=== PATIENT | female | born 2000 | race Caucasian/White ===

== ENCOUNTER 2022-02-02 21:41 | Emergency (ER) | payer BC, SELFPAY ==
[2022-02-02 21:42] VITALS: BP 138/83; PULSE 90; RESP 16; TEMP 36.9; O2SAT 98; BMI 22.1
--- NOTE | 2022-02-02 22:06 | EKG12_ITS ---
Test Reason : PALPITATIONS Blood Pressure : / mmHG Vent. Rate : 075 BPM Atrial Rate : 075 BPM P-R Int : 122 ms QRS Dur : 076 ms QT Int : 374 ms P-R-T Axes : 063 083 052 degrees QTc Int : 417 ms Normal sinus rhythm with sinus arrhythmia Normal ECG Confirmed by EDDI CLOLAZO, WOLF ([id number]), editor farm journal NAVNEET BARON ([id number]) on 02/04/2022 11:30:20 AM Referred By: MODESTA Confirmed By:WOLF MONTAGUE MD
--- NOTE | 2022-02-02 22:10 | EDS_ITS ---
HPI History of Present Illness Chief Complaint: Palpitations Informant: patient Narrative Narrative: Patient presents intermittent palpitations after being diagnosed with COVID back in November. She is from [place]. She follow-up with her PCP no EKGs done in the office no further testing was told when she returns to get reevaluated. She states symptoms stable he would not last 110 minutes to to have lightheaded symptoms he states for the past 24 hours she has had persistent symptoms. Denies any recent illness. No recent vomiting or diarrhea. No urinary symptoms. She drinks caffeine however states she is cut back and the past 48 hours. No past medical history otherwise. Prior similar symptoms: Yes [facility] Medical History (Updated 02/02/22 @ 22:[address] Howard Kitchen DO) Chronic pain Home Medications gabapentin 300 mg capsule 300 mg PO BID 02/02/22 [History Last Taken Unknown] Allergy/AdvReac Type Severity Reaction Status Date / Time No Known Allergies Allergy Verified 02/02/22 21:44 Social History Smoking Status: Never smoker ROS ROS ED Constitutional Constitutional ED: Denies chills, fever(s) or sweats Eyes Eyes: Denies change in vision ENT ENT ED: Denies dysphagia or sore throat Cardiovascular Cardiovascular: Reports palpitations and racing heartbeat; Denies chest pain or leg edema Respiratory/Chest Respiratory/Chest: Denies cough, dyspnea or dyspnea on exertion Gastrointestinal Gastrointestinal: Denies abdominal pain, diarrhea, nausea or vomiting Genitourinary Genitourinary ED: Denies dysuria, hematuria or urinary frequency Musculoskeletal Musculoskeletal: Denies back pain, extremity pain or neck pain Integumentary Denies rash or wounds Neurologic Neurologic: Denies headache(s), paresthesias or weakness EXAM Physical Exam Const Vital Signs: 02/02/22 21:42 02/02/22 22:15 Temperature 98.5 F Temperature Source Temporal Pulse Rate 90 Respiratory Rate 16 Respiratory Effort Normal Non-Labored Respiratory Pattern Normal Blood Pressure 138/83 H Blood Pressure Mean 101 Pulse Ox 98 Oxygen Delivery Method Room Air Positive well nourished and well developed General Appearance ED: well developed and NAD HEENT Reports moist mucous membranes normocephalic and atraumatic Eyes PERRL, EOMs intact bilaterally and conjunctivae normal General Eye ED: Yes normal appearance of both eyes Neck no lymphadenopathy and supple General: Negative for tenderness Chest Wall Chest: Negative for tenderness Resp normal respiratory effort and normal air movement Effort and Inspection: symmetric chest movement; Negative for respiratory distress Cardio regular rate, regular rhythm and no murmurs Peripheral Pulses: pulses 2+ throughout GI normal to inspection, nondistended, normoactive bowel sounds and non-tender Palpation: Negative for guarding or rebound tenderness present Back/Spine no CVA tenderness and no thoracic nor lumbar tenderness Extremity normal to inspection General Extremety ED: Negative for edema or tenderness General Extremity: Negative for edema Neuro oriented x3 and no sensory deficits noted Sensorium / Orientation: awake and alert Skin no rashes or lesions noted and no wounds MDM MDM MDM Narrative Medical decision making narrative: Patient isolated palpitations no recent vomiting diarrhea. COVID 2 months ago. No dyspnea. EKG was sinus rhythm. Do not feel labs are necessary at this time. With her reported frequent symptoms lasting longer than normal I was able to set up a 40-hour Holter monitor for the patient. Return precaution discussed she will continue to avoid caffeine. She is given follow-up as an outpatient. All questions were answered. EKG Initial EKG: Attestation: I personally reviewed and interpreted this EKG as follows: Comments: Sinus rate of 75, no ST changes T wave inversions V1 V2. QTc 417. Discharge Plan Triage Chief Complaint: Palpitations ED Provider: Howard Kitchen Dx/Rx/DC Orders Clinical Impression: Palpitation Instructions: ED Palpitations Prescriptions: No Action gabapentin 300 mg Capsule 300 mg PO BID Primary Care Provider: BERTIN YANG Referrals: Maria T Barr [Non-Staff] - 1 Week [facility] Doctor,Out of [Non-Staff] - Activity Restrictions/Additional Instructions: 48-hour Holter monitor maintained on return. Avoid caffeine. Follow-up as an outpatient. Return if worsening symptoms. Disposition Disposition: Home, Self Care Discharge Date/Time: 02/02/22 23:13
--- NOTE | 2022-02-02 22:18 | ED.RN ---
no old ekgs
== END 2022-02-02 23:13 | disposition home or self-care (01) ==
PROVIDERS: Emergency Provider Emergency Medicine; Visit Provider Emergency Medicine
DX: R00.2 Palpitations (principal)
CPT/HCPCS: 93005; 99282

== ENCOUNTER → 2022-02-02 | Outpatient (CLI) | payer BC, SELFPAY | END | disposition home or self-care (01) | LOC: CVS 22:25 | PROVIDERS: Visit Provider Internal Medicine Cardiovascular Disease | DX: R00.2 Palpitations (principal) | CPT/HCPCS: 93225; 93226 ==

== ENCOUNTER 2022-09-16 15:23 | Emergency (ER) | payer BC, SELFPAY ==
[2022-09-16 15:24] VITALS: BP 121/83; PULSE 85; RESP 18; TEMP 36.7; O2SAT 97; BMI 22.8
--- NOTE | 2022-09-16 17:10 | EDS_ITS ---
HPI History of Present Illness Chief Complaint: Abd Pain Informant: patient Narrative Narrative: Patient was sent over to urgent care because of right side abdominal pain. Patient states that she had some right lower abdominal pain that started on Friday. It was cramping. It lasted for few hours and then seemed to go away. It came back on Friday with the start of her normal menstrual cycle. She states she will sometimes get some cramping a few days before her menstrual cycle so that is just what she thought that was on Friday. She states this pain is like her menstrual cycle but it is worse than normal. But she has been having worse pain with her menstrual cycles and is being worked up for endometriosis because of this. She states the flow of this menstrual cycle was normal. The timing is normal. She is on control and takes it regularly. She had a little bit of nausea with the pain but no vomiting. She has still been able to eat and drink. She has not lost appetite. No change in bowel habits. She has not had fevers or chills. No prior abdominal surgeries. She denied flank pain to me. No change in urine. PFSH PFS Medical History Autism disorder Chronic pain Fibromyalgia Generalized anxiety disorder Insomnia Major depressive disorder Vitamin B12 deficiency Home Medications metoprolol succinate 25 mg tablet,extended release 24 hr tablet PO 07/30/22 [History Last Taken Unknown] trazodone 50 mg tablet 50 mg PO QHS PRN insomnia #30 tabs 07/30/22 [Rx Last Taken Unknown] bupropion HCl 300 mg 24 hr tablet, extended release 300 mg PO QAM #90 tabs 09/12/22 [Rx Last Taken Unknown] naproxen 500 mg tablet tablet PO 09/12/22 [History Last Taken Unknown] norgestimate 0.25 mg-ethinyl estradiol 35 mcg tablet (Sprintec (28)) tablet PO 09/12/22 [History Last Taken Unknown] Allergy/AdvReac Type Severity Reaction Status Date / Time No Known Allergies Allergy Verified 09/16/22 15:24 Family History Other Alcoholism Anemia Anxiety Arthritis Asthma Breast cancer Depression Hyperaldosteronism Hypertension Melanoma Mental disorder Thyroid disorder Social History Smoking Status: Never smoker alcohol intake: never substance use type: does not use eating out: 1-3 times/week what type of physical activity do you participate in: other details: dance ROS ROS ED ROS Narrative A complete review of systems was performed and is negative except as documented in the history of present illness. Some specific details below. Constitutional: No recent fevers or chills. EYE: No visual complaints or pain. ENT: No difficulty swallowing. No swelling. No pain. Although she has mild nausea today she has been eating and drinking normally. CV: No chest pain or palpitations. Respiratory: No dyspnea. No hemoptysis. No difficulty taking breaths. GI: Please see history of present illness. : No frequency dysuria or hematuria. She is urinating easily. No odor. No change in color. Menstrual cycle started Friday and is normal timing. Musculoskeletal: No recent trauma. No pains. Skin: No rash. Nondiaphoretic. Neuro: No weakness or numbness. Endocrine: No polyuria or polydipsia. EXAM Physical Exam Narrative Exam Narrative: CONSTITUTIONAL: Patient is nontoxic in appearance. The patient looks comfortable. HEENT: No notable trauma. Mucous membranes moist. No sinus tenderness. No indication of pain with swallowing. EYES: No conjunctival injection. No proptosis. CARDIOVASCULAR: Regular rate. Regular rhythm. No notable murmur. No JVD. RESPIRATORY: No respiratory distress. Breathing is unlabored. No wheezes. No rhonchi. No rales. No pain with a deep breath. GASTROINTESTINAL: Not distended. Bowel sounds are normal. Minimal if any tenderness. The tenderness is in the mid low abdomen and a little bit toward the right. Its not located isolated at McBurney's point. There is certainly no guarding. No rebound. No palpable mass. No bruit. GENITOURINARY: Minimal tenderness over the bladder region. No CVA tenderness on either side. MUSCULOSKELETAL: Atraumatic. No peripheral edema. No cord. No tenderness along the deep venous system. No asymmetry. NEUROLOGICAL: Patient is alert and appropriate. No focal deficit noted. SKIN: No noted rashes. No diaphoresis. PSYCHIATRIC: Patient is calm. Mood is appropriate. Const Vital Signs: 09/16/22 15:24 Temperature 98.1 F Temperature Source Temporal Pulse Rate 85 Respiratory Rate 18 Blood Pressure 121/83 H Blood Pressure Mean 95 Pulse Ox 97 Oxygen Delivery Method Room Air MDM MDM MDM Narrative Medical decision making narrative: Patient CBC shows normal white count hemoglobin and platelet count. Electrolytes show elevated potassium but there is gross hemolysis. Otherwise normal. 9 urine showed 0-5 white cells. There were some red cells but I think this is because she is on her menstrual cycle. was negative. Patient's recheck. She feels much better. I think she has had symptoms off and on for 5 days now. She has a normal white count no fevers eating and drinking. I think this is likely her menstrual cycle. Its in the same area. Is just was a little bit worse earlier today. She is comfortable now. I think she is safe for discharge. We did discuss returning if she has increasing pain nausea vomiting or fevers or any other concerns Lab Data Labs: Laboratory Results - last 24 hr 09/16/22 09/16/22 09/16/22 17:30 17:35 17:35 WBC 4.4 RBC 4.61 Hgb 14.2 Hct 41.1 MCV 89.2 MCH 30.8 MCHC 34.5 RDW Std Deviation 39.8 RDW Coeff of Aquiles 12.3 Plt Count 273 MPV 9.3 Immature Gran % (Auto) 0.200 Neut % (Auto) 62.4 Lymph % (Auto) 28.1 [place] % (Auto) 7.0 Eos % (Auto) 1.8 Baso % (Auto) 0.5 Absolute Neuts (auto) 2.8 Absolute Lymphs (auto) 1.24 Nucleated RBC % 0 Sodium 134 L Potassium 5.8 H Chloride 106 Carbon Dioxide 29.0 Anion Gap -1 L BUN 9 Creatinine 0.76 Estim Creat Clear Calc 89.10 Est GFR (MDRD) Af Amer 124 Est GFR (MDRD) Non-Af 103 BUN/Creatinine Ratio 11.8 Glucose 87 Calcium 9.3 Serum , Qual Urine Color Yellow Urine Clarity Sl. Cloudy Urine pH 5.0 Ur Specific [place] 1.025 Urine Protein 30 H Urine Glucose (UA) Normal Urine Ketones 5 H Urine Occult Blood 250 H Urine Nitrite Negative Urine Bilirubin Negative Urine Urobilinogen 1 H Ur Leukocyte Esterase 25 H Urine RBC 10-25 SEEN Urine WBC 0-5 SEEN Ur Squamous Epith Cells 0-5 SEEN Amorphous Sediment 1+ URATE Urine Bacteria 0 SEEN Urine Mucus 0 SEEN 09/16/22 17:35 WBC RBC Hgb Hct MCV MCH MCHC RDW Std Deviation RDW Coeff of [place]iles Plt Count MPV Immature Gran % (Auto) Neut % (Auto) Lymph % (Auto) [place] % (Auto) Eos % (Auto) Baso % (Auto) Absolute Neuts (auto) Absolute Lymphs (auto) Nucleated RBC % Sodium Potassium Chloride Carbon Dioxide Anion Gap BUN Creatinine Estim Creat Clear Calc Est GFR (MDRD) Af Amer Est GFR (MDRD) Non-Af BUN/Creatinine Ratio Glucose Calcium Serum , Qual NEGATIVE Urine Color Urine Clarity Urine pH Ur Specific [place] Urine Protein Urine Glucose (UA) Urine Ketones Urine Occult Blood Urine Nitrite Urine Bilirubin Urine Urobilinogen Ur Leukocyte Esterase Urine RBC Urine WBC Ur Squamous Epith Cells Amorphous Sediment Urine Bacteria Urine Mucus Discharge Plan Triage Chief Complaint: Abd Pain ED Provider: Andrea Lyons Dx/Rx/DC Orders Clinical Impression: Abdominal pain, Menstrual cramps Instructions: ED Abdominal Pain Unkn Cause Fem Prescriptions: No Action metoprolol succinate 25 mg tablet extended release 24 hr PO trazodone 50 mg tablet 50 mg PO QHS PRN (Reason: insomnia) Qty: 30 2RF naproxen 500 mg tablet PO norgestimate-ethinyl estradiol [Sprintec (28)] 0.25-35 mg-mcg tablet PO bupropion HCl 300 mg tablet extended release 24 hr 300 mg PO QAM Qty: 90 1RF Primary Care Provider: Becky Eisenberg,Out of Referrals: Cary Rock DO [Med Staff - Active Staff] - 3-5 Days if not improving [facility] Doctor,Out of [Primary Care Provider] - Disposition Disposition: Home, Self Care
[2022-09-16] MEDS: Ondansetron 4 MG/2 ML Vial IV (17:33)
[2022-09-16] MEDS: 0.9% Normal Saline 1,000 ML 1000 ML IV (17:33)
[2022-09-16 17:41] LABS: Bacteria 0 SEEN /hpf (None Seen); Mucous, Urine 0 SEEN /hpf (<or=2+)
[2022-09-16 17:42] LABS: Color, Urine Yellow (Yellow); Glucose, Dipstick Normal (Normal); Ketone-Dipstick 5 mg/dl (Negative); Leukocyte Esterase-Dipstick 25 /ul (Negative); Nitrite-Dipstick Negative (Negative); Occult Blood-Urine 250 /ul (Negative); Protein-Dipstick 30 mg/dl (Negative); Specific Gravity, Urine 1.025 (1.002-1.030); Urine Bilirubin Dipstick Negative (Negative); Urine Clarity Sl. Cloudy (Clear); Urine Urobilinogen 1 mg/dl (Normal)
[2022-09-16 17:43] LABS: Absolute Lymphocyte Count 1.24 X10^3/uL (0.83-4.51); Absolute Neutrophil Count 2.8 X10^3/uL (2.0-7.7); Basophil# 0.02 X10^3/uL; Basophil% 0.5 % (0-1); Eosinophil# 0.08 X10^3/uL; Eosinophils% 1.8 % (0-5); Hematocrit 41.1 % (37-47); Hemoglobin 14.2 g/dL (12.0-15.0); Lymphocyte # 1.24 X10^3/ul (0.83-4.51); Lymphocyte % 28.1 % (19-41); Mean Corp Hgb Conc 34.5 g/dL (32-36); Mean Corpuscular Hgb 30.8 pg (27.0-32.0); Mean Corpuscular Volume 89.2 fL (81-99); Mean Platelet Vol. 9.3 fl (6.2-12.0); Monocyte# 0.31 X10^3/uL; NRBC Flagged by Analyzer 0 % (0-5); Neutrophil # 2.76 X10^3/uL (2.7-7.7); Neutrophil % 62.4 % (47-70); Platelet Count 273 K/mm3 (150-450); RBC Distribution Width CV 12.3 % (11.6-14.6); RBC Distribution Width SD 39.8 fl (35.1-43.9); Red Blood Count 4.61 M/mm3 (4.2-5.4); White Blood Count 4.4 K/mm3 (4.4-11.0)
[2022-09-16] MEDS: Ketorolac 15 MG/ML Vial IV (17:44)
[2022-09-16 18:06] LABS: Anion Gap -1 (5-15); BUN 9 mg/dL (7-18); BUN/Creat Ratio 11.8 RATIO (10-20); Calcium,Total 9.3 mg/dL (8.5-10.1); Chloride 106 mmol/L (98-107); Creatinine, Serum 0.76 mg/dL (0.55-1.02); EST Glomerular Filtration Rate 103 mL/min (>60); Est Glom Filt Rate - Afr Amer 124 mL/min (>60); Glucose 87 mg/dL (74-106); Potassium 5.8 mmol/L (3.5-5.1); Sodium Level 134 mmol/L (136-145)
[2022-09-16 18:34] LABS: Internal QC Validated? YES +Cl - CLEAR BKGD; Pregnancy, Serum, hCG Quali. NEGATIVE Negative
[2022-09-16 19:11] LABS: Amorphous Sediment 1+ URATE; Red Blood Cells-Urine 10-25 SEEN /hpf (0-5); Squamous Epithelial Cells - UA 0-5 SEEN /hpf (5-10); White Blood Cells 0-5 SEEN /hpf (0-5)
== END 2022-09-16 20:09 | disposition home or self-care (01) ==
PROVIDERS: Emergency Provider Emergency Medicine; Visit Provider Emergency Medicine
DX: N94.6 Dysmenorrhea, unspecified (principal)
CPT/HCPCS: 80048; 81001; 84703; 85025; 96361; 96374; 96375; 99283; J7030; J2405

== ENCOUNTER 2023-03-12 21:35 | Emergency (ER) | payer BC, SELFPAY ==
[2023-03-12 21:36] VITALS: BP 134/84; PULSE 86; RESP 16; TEMP 36.6; O2SAT 99; BMI 22.7
--- NOTE | 2023-03-12 21:39 | EKG12_ITS ---
Test Reason : PALPS Blood Pressure : / mmHG Vent. Rate : 075 BPM Atrial Rate : 075 BPM P-R Int : 118 ms QRS Dur : 084 ms QT Int : 358 ms P-R-T Axes : 060 087 056 degrees QTc Int : 399 ms Normal sinus rhythm with sinus arrhythmia Normal ECG Confirmed by VERNELL COLLAZO, ANU ([id number]), news assignment editor BIB WHATELY ([id number]) on 03/14/2023 7:14:10 AM Referred By: Confirmed By:TALIA MATT MD
--- NOTE | 2023-03-12 21:49 | EDS_ITS ---
HPI History of Present Illness Chief Complaint: Palpitations Detail of Chief Complaint: History of post COVID tachycardia. Informant: patient Onset/Context/Timing Onset: Today Activity at onset: sudden Timing: Intermittent Narrative Narrative: 22-year-old female who is a [employer] [place]. 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 She has been worked up for this. They are also evaluating her for possible POTS. Today she said her heart rate was elevated. She denies chest pain. No history of DVT or PE. No leg pain or swelling. No hemoptysis. Currently thinks her symptoms have resolved. She did take a propranolol at around 10 AM today. She has a prescription for that that she uses as needed. She denies any fever, vomiting or diarrhea. No dysuria. Currently not . Prior Similar Symptoms: Yes Recent Illness/Hospitalization: No CVD Risk Factors: Negative for Hypertension, Diabetes or Hypercholesterolemia PE Risk Factors: Negative for Recent Travel/Surgery, Recent Immobilization, Prior DVT or PE, Cancer or OCP + Smoking + >/=35 TAD Risk Factors: Negative for Marfan's Syndrome PFSH PFS Medical History Autism disorder Chronic pain Fibromyalgia Generalized anxiety disorder Insomnia Major depressive disorder Vitamin B12 deficiency Home Medications metoprolol succinate 25 mg tablet,extended release 24 hr tablet PO 07/30/22 [History Last Taken Unknown] trazodone 50 mg tablet 50 mg PO QHS PRN insomnia #30 tabs 07/30/22 [Rx Last Taken Unknown] bupropion HCl 300 mg 24 hr tablet, extended release 300 mg PO QAM #90 tabs 09/12/22 [Rx Last Taken Unknown] naproxen 500 mg tablet tablet PO 09/12/22 [History Last Taken Unknown] tranexamic acid 650 mg tablet 650 mg PO Q12H 01/08/23 [History Last Taken Unknown] venlafaxine 37.5 mg capsule,extended release 24 hr (Effexor XR) 75 mg PO DAILY 01/08/23 [History Last Taken Unknown] Allergy/AdvReac Type Severity Reaction Status Date / Time No Known Allergies Allergy Verified 03/12/23 21:37 Family History Other Alcoholism Anemia Anxiety Arthritis Asthma Breast cancer Depression Hyperaldosteronism Hypertension Melanoma Mental disorder Thyroid disorder Social History Smoking Status: Never smoker alcohol intake: never substance use type: does not use eating out: 1-3 times/week what type of physical activity do you participate in: other details: dance ROS ROS ED ROS Narrative Denies recent illness. Recurrent tachycardia. Review of Systems ROS Unobtainable: Denies due to encephalopathy Constitutional Constitutional ED: Denies chills or fever(s) Eyes Eyes: Reports none ENT ENT ED: Denies ear pain Cardiovascular Cardiovascular: Reports as per HPI, palpitations and racing heartbeat; Denies chest pain Respiratory/Chest Respiratory/Chest: Denies cough or dyspnea Gastrointestinal Gastrointestinal: Denies abdominal pain Genitourinary Genitourinary ED: Denies dysuria or hematuria Musculoskeletal Musculoskeletal: Denies arthralgias, back pain or myalgias Integumentary Denies abscess or Abrasions Neurologic Neurologic: Denies headache(s) Psychiatric Psychiatric: Denies anxiety Endocrine Endocrinology: Denies cold intolerance Hematologic/Lymphatic Hematologic/Lymphatic: Denies easy bleeding Allergic/Immunologic Allergic/Immunologic ED: Denies mouth swelling, tongue swelling or urticaria EXAM Physical Exam Narrative Exam Narrative: Appearing 22-year-old female. Vital signs stable afebrile. Current heart rates in the 70s. Pulse ox 99% on room air no hypoxia. She is in no distress. H EENT exam normal. Moist with members. Neck nontender. No thyromegaly. No lymphadenopathy. Lungs clear to auscultation bilaterally. Heart regular rhythm rate about 80 no murmur. Chest wall nontender. Abdomen soft nontender. Back unremarkable. Moving all 4 extremities. Normal radial pulse. Calves are nontender without edema or cords. Neurologically she is awake and alert with no focal motor deficits. Const Vital Signs: 03/12/23 21:36 03/12/23 21:35 Temperature 98 F Temperature Source Temporal Pulse Rate 86 Respiratory Rate 16 Respiratory Effort Normal Non-Labored Blood Pressure 134/84 H Blood Pressure Mean 100 Pulse Ox 99 Oxygen Delivery Method Room Air Positive well nourished and well developed; Negative for obese, cachectic, contractures or unkempt General Appearance ED: well developed and NAD; Negative for unkempt, cachectic, contractures or pallor Nutritional Appearance: Negative for cachectic or obese HEENT Reports moist mucous membranes normocephalic and atraumatic; Negative for trauma or tenderness Eyes PERRL and EOMs intact bilaterally General Eye ED: Negative for pale conjunctiva or scleral icterus Neck no lymphadenopathy, supple and no JVD General: Negative for tenderness Chest Wall inspection of chest normal and palpation of chest normal Chest: Negative for tenderness Resp normal respiratory effort and clear to auscultation bilaterally Effort and Inspection: Negative for respiratory distress Auscultation: Negative for rales, rhonchi or wheezes Cardio regular rate, regular rhythm, S1 normal heart sound, S2 normal heart sound and no murmurs Rate: Negative for bradycardia or tachycardic Rhythm: Negative for abnormal rhythm Peripheral Pulses: pulses 2+ throughout GI normal to inspection, nondistended, normoactive bowel sounds, soft to palpation, non-tender, non-distended and no masses Auscultation: Negative for hyperactive bowel sounds Palpation: Negative for splenomegaly, mass or other Back/Spine no CVA tenderness and no thoracic nor lumbar tenderness General Back: Negative for CVA tenderness Cervical Spine: Negative for cervical spine tenderness Extremity normal to inspection General Extremety ED: Negative for edema, pulses abnormal or tenderness General Extremity: Negative for edema or pulses abnormal Neuro oriented x3 and CN's II-XII intact bilaterally Sensorium / Orientation: awake, alert, oriented to person, oriented to place and oriented to time; Negative for confused, lethargic or stuporous Psych mental status grossly normal Appearance: Negative for unkempt Attitude: No agitated Mood & Affect: Negative for depressed, anxious, tearful or other Skin no rashes or lesions noted and no wounds General Skin Exam: Negative for jaundice or pallor Rashes: No rashes noted Trauma: Negative for abrasion or laceration MDM MDM MDM Narrative Medical decision making narrative: 22-year-old with palpitations that is since resolved issues after he she used her prescription for propranolol. She has had this before. Her exam is totally normal. Currently her heart rates in the 70s. Her pulse ox is 99%. I do not think she needs any further evaluation. Repeat exam at 10:05 PM was normal. Heart rate in the 70s. I discussed with the patient and her friend at bedside that her exam is normal and her EKG is normal. I do not expect this any significant change in her treatment plan with further studies. They both requested labs to be done will obtain a CBC and chemistry when those come back unremarkable she will be discharged back to the [facility]. Repeat exam patient doing well at 10:39 PM. She will be discharged to home. Outpatient follow-up. History & Record Review Discussion w/independent historian: Patient Additional record(s) reviewed:: Prior inpatient record, Prior outpatient record and Prior ED visit Lab Data Attestation: I reviewed the patient's lab results. Lab results narrative: CBC normal. White count of 6 H&H 14 and 42. Platelets 278. Chemistry panel shows no acute abnormality. Gap 4. Normal BUN and creatinine and 9 and 0.8. Glucose 98. Labs: Laboratory Results - last 24 hr 03/12/23 22:17 WBC 6.3 RBC 4.67 Hgb 14.3 Hct 42.0 MCV 89.9 MCH 30.6 MCHC 34.0 RDW Std Deviation 39.4 RDW Coeff of Aquiles 12.2 Plt Count 278 MPV 9.2 Immature Gran % (Auto) 0.300 Neut % (Auto) 66.1 Lymph % (Auto) 25.9 [place] % (Auto) 6.5 Eos % (Auto) 1.0 Baso % (Auto) 0.2 Absolute Neuts (auto) 4.2 Absolute Lymphs (auto) 1.63 Nucleated RBC % 0 Sodium 140 Potassium 3.9 Chloride 106 Carbon Dioxide 30.0 Anion Gap 4 L BUN 9 Creatinine 0.83 Estim Creat Clear Calc 81.59 Est GFR (MDRD) Af Amer 112 Est GFR (MDRD) Non-Af 93 BUN/Creatinine Ratio 10.9 Glucose 98 Calcium 9.0 Rhythm Strip Rhythm Strip: Sinus Rhythm Rate: 75 Ectopy: None EKG Initial EKG: Attestation: I personally reviewed and interpreted this EKG as follows: Interpretation: Sinus Rhythm and No Acute Injury Pattern Comments: Normal sinus rhythm rate of 75 no acute signs of [place] nor ischemia nor dysrhythmia. Completely normal EKG. Prior EKG tracings: available for review Prior: Unchanged Discharge Plan Triage Chief Complaint: Palpitations ED Provider: Rajat Ya Dx/Rx/DC Orders Clinical Impression: History of anxiety, Tachycardia Instructions: ED Palpitations Prescriptions: No Action metoprolol succinate 25 mg tablet extended release 24 hr PO trazodone 50 mg tablet 50 mg PO QHS PRN (Reason: insomnia) Qty: 30 2RF naproxen 500 mg tablet PO bupropion HCl 300 mg tablet extended release 24 hr 300 mg PO QAM Qty: 90 1RF venlafaxine [Effexor XR] 37.5 mg capsule,extended release 24hr 75 mg PO DAILY tranexamic acid 650 mg tablet 650 mg PO Q12H Primary Care Provider: Care Physician,No Primary Referrals: [facility] Doctor,Out of [Non-Staff] - Activity Restrictions/Additional Instructions: Follow-up with your doctors as needed. If you have a consistently elevated heart rate you can use your propranolol. If you are feeling worse you can always return to the emergency department. There is no further testing we need to do tonight. Your exam is completely normal at this time. Disposition Disposition: Home, Self Care
[2023-03-12 22:24] LABS: Absolute Lymphocyte Count 1.63 X10^3/uL (0.83-4.51); Absolute Neutrophil Count 4.2 X10^3/uL (2.0-7.7); Basophil# 0.01 X10^3/uL; Basophil% 0.2 % (0-1); Eosinophil# 0.06 X10^3/uL; Hemoglobin 14.3 g/dL (12.0-15.0); Lymphocyte # 1.63 X10^3/ul (0.83-4.51); Lymphocyte % 25.9 % (19-41); Mean Corpuscular Hgb 30.6 pg (27.0-32.0); Mean Corpuscular Volume 89.9 fL (81-99); Mean Platelet Vol. 9.2 fl (6.2-12.0); Monocyte# 0.41 X10^3/uL; Monocyte% 6.5 % (0-10); NRBC Flagged by Analyzer 0 % (0-5); Neutrophil # 4.16 X10^3/uL (2.7-7.7); Neutrophil % 66.1 % (47-70); Platelet Count 278 K/mm3 (150-450); RBC Distribution Width CV 12.2 % (11.6-14.6); RBC Distribution Width SD 39.4 fl (35.1-43.9); Red Blood Count 4.67 M/mm3 (4.2-5.4); White Blood Count 6.3 K/mm3 (4.4-11.0)
[2023-03-12 22:37] LABS: Anion Gap 4 (5-15); BUN 9 mg/dL (7-18); BUN/Creat Ratio 10.9 RATIO (10-20); Chloride 106 mmol/L (98-107); Creatinine, Serum 0.83 mg/dL (0.55-1.02); EST Glomerular Filtration Rate 93 mL/min (>60); Est Glom Filt Rate - Afr Amer 112 mL/min (>60); Estimated Creatinine Clearance 81.59 ml/min; Glucose 98 mg/dL (74-106); Potassium 3.9 mmol/L (3.5-5.1); Sodium Level 140 mmol/L (136-145)
[2023-03-12 22:54] VITALS: PULSE 69; RESP 17; O2SAT 98
== END 2023-03-12 22:55 | disposition home or self-care (01) ==
LOC: ED 22:08
PROVIDERS: Emergency Provider Emergency Medicine; Visit Provider Emergency Medicine
DX: R00.2 Palpitations (principal); F41.9 Anxiety disorder, unspecified
CPT/HCPCS: 80048; 85025; 93005; 99283; A4216